=== PATIENT | female | born 1970 | race Caucasian/White ===

== ENCOUNTER → 2021-09-10 14:08 | Outpatient (CLI) | payer OTHER, SELFPAY ==
--- NOTE | ~2021-09-10 | MMUS_ITS ---
EXAMINATION: MM diagnostic melina BI w agnes, US breast LT limited HISTORY: Left breast pain TECHNIQUE: Additional 3-D tomosynthesis images of the breasts were performed and synthetic 2-D images were generated. CAD analysis was submitted and interpreted. High resolution Limited left breast ultr asound was performed. COMPARISON: 08/28/2015 BREAST PARENCHYMAL COMPOSITION: The breasts are extremely dense, which lowers the sensitivity of mamm ography FINDINGS: MAMMOGRAPHIC FINDINGS: There are no suspicious masses, calcifications or architectural distortion in either breast to sugges t malignancy. ULTRASOUND: Limited left breast ultrasound: At 3:00, near the areola there is a small 3 mm cyst. No suspicious ma sses to suggest malignancy. IMPRESSION: 1. No evidence for malignancy in either breast. 2. Routine yearly screening mammogram and regular clinical breast examination are recommended. BI-RADS Category 2: Benign finding(s). Reviewed, dictated and finalized at location A. IMPRESSION: 1. No evidence for malignancy in either breast. 2. Routine yearly screening mammogram and regular clinical breast examination a re recommended. BI-RADS Category 2: Benign finding(s).
== END ==
PROVIDERS: PCP Nurse Practitioner Family; Visit Provider Nurse Practitioner Family
DX: N64.4 Mastodynia (principal); N64.52 Nipple discharge
CPT/HCPCS: 76642; 77062; 77066; G0279

== ENCOUNTER 2022-06-23 12:03 | Emergency (ER) | payer OTHER, SELFPAY ==
--- NOTE | ~2022-06-23 | CT_ITS ---
CT Abdomen and Pelvis with contrast. History: Abdominal pain. Spiral CT of the abdomen and pelvis was performed after the administration of intravenous contrast. 1 00 cc of Omnipaque 350 was administered intravenously without complication. Dose reduction technique was used on this scan by utilizing automated exposure control and iterative reconstruction technique. The dose-length product (DLP) was 255.80 mGy-cm. Findings: Scans through the lung bases demonstrate mild atelectatic change. The liver, spleen, pancreas, gallbladder, adrenals and kidneys are within normal limits. No evidence of aortic aneurysm. No lymphadenopathy is seen. There is no evidence of bowel obstruction. There is no evidence to suggest acute appendicitis or dive rticulitis. Questionable minimal inflammatory change adjacent to the stomach in the epigastric region . Images through the pelvis were performed. Urinary bladder unremarkable. No adnexal mass seen. Trace f ree fluid noted in the pelvis. Impression: Suggestion of minimal inflammatory change adjacent to the stomach in the epigastric region. Correlate for gastritis. No evidence of perforation. Reviewed, dictated and finalized at location . [employer] Impression: Suggestion of minimal inflammatory change adjacent to the stomach in the epigas tric region. Correlate for gastritis. No evidence of perforation.
[2022-06-23 12:06] VITALS: BP 141/76; PULSE 89; RESP 16; TEMP 36.4; O2SAT 100
[2022-06-23 12:38] LABS: Basophils Absolute Auto 0.1 K/mm3 (0.0-0.1); Basophils Percent Auto 0.7 % (0.2-1.2); Eosinophils Absolute Auto 0.1 K/mm3 (0-0.3); Eosinophils Percent Auto 0.7 % (0-4.4); Hematocrit 39.3 % (37.0-47.0); Hemoglobin 13.3 g/dL (12.0-15.0); Immature Granulocyte Absolute 0.05 K/mm3 (0.00-0.031); Immature Granulocyte Percent A 0.5 % (0-0.5); Lymphocytes Absolute Auto 1.61 K/mm3 (0.9-3.2); Mean Corpuscular HGB Conc 33.8 g/dl (32-36); Mean Corpuscular Hemoglobin 32.5 pg (26-34); Mean Corpuscular Volume 96.1 fl (80-100); Mean Platelet Volume 8.8 fl (7.4-10.4); Monocytes Absolute Auto 0.6 K/mm3 (0.1-0.6); Neutrophils Absolute Auto 8.3 K/mm3 (1.3-6.7); Neutrophils Percent Auto 77.1 % (45.5-73.1); Platelet Count Result 318 k/mm3 (150-375); Red Blood Count 4.09 M/mm3 (4.2-5.4); Red Cell Distribution Width 11.9 % (11.5-14.5); White Blood Count 10.7 K/mm3 (4.5-10.0)
--- NOTE | 2022-06-23 12:39 | ED.ABDPAIN ---
HPI - Abdominal Pain General Chief Complaint: Abdominal Pain Stated Complaint: epigastric/chest pain Time Seen by Provider: 06/23/22 12:08 History of Present Illness HPI narrative: Patient is a 51-year-old female presenting with epigastric pain. Patient states that about 4 days ago she developed epigastric pain that has not improved. States that it radiates into her back. States that it is worse with eating so she has not been able to eat anything. No nausea or vomiting. States that she took some Prilosec without relief. She called her doctor today who advised that she come in for evaluation. She denies fevers or chills, headache, numbness or weakness, chest pain, shortness of breath, diarrhea, dysuria, hematuria. Related Data Home Medications Medication Instructions Recorded Confirmed cholecalciferol (vitamin D3) 50 50 mcg PO DAILY 08/27/21 mcg (2,000 unit) capsule citalopram 20 mg tablet mg 06/23/22 06/23/22 Allergies Allergy/AdvReac Type Severity Reaction Status Date / Time Sulfa (Sulfonamide Allergy Unknown HIVES Verified 06/23/22 12:20 Antibiotics) Review of Systems Review of Systems: All systems reviewed & are unremarkable except as noted in HPI and below PMFSH Past Medical History Medical History Anxiety Clavicle fracture Surgical History Surgical History H/O section H/O hemorrhoidectomy H/O tubal ligation Hx of tonsillectomy Family History Family History Father Lung cancer Grandparent Breast cancer Diabetes mellitus Social History Social History Smoking status: Current every day smoker Tobacco type: cigarettes Alcohol intake: current Substance use: current Other substance usage details: vapes with CBD oil Exam Narrative: GENERAL: Well-appearing, well-nourished, and in no acute distress. HEAD: Normocephalic, atraumatic. EYES: PERRLA and EOMI. ENT: Nares clear, no rhinorrhea or epistaxis. Mucous membranes moist. NECK: Supple. CHEST: Clear to auscultation. No respiratory distress. HEART: Regular rate and rhythm. No murmur heard. Normal peripheral pulses. ABDOMEN: Soft, right upper quadrant and epigastric tenderness with voluntary guarding, no rebound EXTREMITIES: Normal range of motion. No edema. SKIN: Warm, dry, no rash. NEURO: No focal deficits. Alert and oriented x3. PSYCH: Normal mood and affect. Course Vital Signs Vital signs: Vital Signs Temperature 97.6 F 06/23/22 12:06 Pulse Rate 89 06/23/22 12:06 Respiratory Rate 16 06/23/22 12:06 Blood Pressure 141/76 H 06/23/22 12:06 Pulse Oximetry 100 06/23/22 12:06 Oxygen Delivery Room Air 06/23/22 12:06 Temperature 97.6 F 06/23/22 12:06 Pulse Rate 89 06/23/22 12:06 Respiratory Rate 16 06/23/22 12:06 Blood Pressure 141/76 H 06/23/22 12:06 Pulse Oximetry 100 06/23/22 12:06 Oxygen Delivery Room Air 06/23/22 12:06 MDM - Abdominal Pain MDM Narrative Medical decision making narrative: Patient is a 51-year-old female presenting with several days of epigastric pain. Vitals within normal limits. Exam is remarkable for the above. Blood work with mild leukocytosis. UA is contaminated but not indicative of infection. CT abdomen pelvis with evidence of gastritis. Patient given a GI cocktail. Will prescribe famotidine for the next several weeks. Advise close PCP follow-up. Appropriate return precautions given. Patient voiced understanding and is agreeable with plan. Discharged in stable condition. Differential Diagnosis Differential diagnosis: Likely abdominal pain, constipation, gastroenteritis, pancreatitis and small bowel obstruction Lab Data 06/23/22 12:28 06/23/22 12:28 Labs: Lab Results 06/23/22
[2022-06-23 12:56] LABS: Alanine Aminotransferase 22 U/L (6-35); Albumin Level 4.4 g/dL (3.5-5.1); Alkaline Phosphatase 80 U/L (38-126); Anion Gap 8 mmol/L (8-16); Aspartate Amino Transferase 32 U/L (14-36); Bilirubin,Total 0.6 mg/dL (0.2-1.3); Blood Urea Nitrogen 8 mg/dL (7-17); Calcium 9.1 mg/dL (8.4-10.2); Carbon Dioxide 27 mmol/L (22-30); Chloride 104 mmol/L (98-107); Estimated CRCL calculation 67 ml/min; Estimated Glomerular Filt Rate > 60; Glucose 108 mg/dL (65-110); Lipase 104 U/L (23-300); Potassium 3.8 mmol/L (3.4-5.0); Sodium 139 mmol/L (137-145)
[2022-06-23 13:08] LABS: Appearance Urine Clear (Clear); Bilirubin Urine Negative (Negative); Blood Urine 1+ (Negative); Color Urine Yellow (Yellow); Glucose Urine UA Negative (Negative); Ketones Urine Negative (Negative); Leukocyte Esterase Ur Negative LEU/UL (Negative); Nitrate Urine Negative (Negative); Protein Urine Negative (Negative); Specific Grav Ur 1.015 (1.001-1.035); Urobilinogen Urine 0.2 mg/dL (<2.0)
[2022-06-23 13:17] LABS: Add Urine Microscopic? NO
[2022-06-23 13:25] LABS: Bacteria Urine 2+ /hpf; Mucus Urine Rare /lpf; Squamous Epithelial Cell Urine Occasional /hpf (Few); WBC Urine 0-3 /hpf
[2022-06-23] MEDS: BELLADONNA ALK/PHENOB ELIX 10 ML, MAG HYDROX/ALUMINUM HYD/SIMETH 30 ML, LIDOCAINE HCL 2... PO (15:07)
== END 2022-06-23 15:18 | disposition home or self-care (01) ==
PROVIDERS: Emergency Provider Emergency Medicine; PCP Family Medicine
DX: K29.70 Gastritis, unspecified, without bleeding (principal); F41.9 Anxiety disorder, unspecified; F17.210 Nicotine dependence, cigarettes, uncomplicated
CPT/HCPCS: 36415; 74177; 80053; 81003; 81025; 83690; 85025; 99284; A9270; Q9967